=== PATIENT | male | born 1990 | race Two or more races ===

== ENCOUNTER 2018-07-13 04:22 | Emergency (ER) | payer SELFPAY ==
[2018-07-13 04:37] VITALS: BP 141/83; PULSE 81; TEMP 98; O2SAT 99
[2018-07-13] MEDS ORDERED: Amoxicillin-Clav 875-125 mg Tab PO STA (04:46)
[2018-07-13] MEDS ORDERED: Naproxen 500 MG TAB PO ONE ×2 (04:46→04:53)
--- NOTE | 2018-07-13 04:50 | ED PDOC ---
HPI: General Adult Time Seen by Provider: 07/13/18 04:40 Chief Complaint (Nursing): ENT Problem Chief Complaint (Provider): ENT Problem History Per: Patient History/Exam Limitations: no limitations Onset/Duration Of Symptoms: Days (2-3) Additional Complaint(s): 28 years old male presents to ER for evaluation of sore throat for the past 2 to 3 days. Patient reports initially he has fever, which resolved after the first day. He states he has been taking Tylenol, last dose was at 2 am today. Patient denies cough, congestion, hemoptysis, rash, abdominal pain, recent travel or sick contact. PMD: None provided Past Medical History Reviewed: Historical Data, Nursing Documentation, Vital Signs Vital Signs: Last Vital Signs Temp 98 F 07/13/18 04:36 Pulse 81 07/13/18 04:36 Resp 17 07/13/18 04:36 BP 141/83 07/13/18 04:36 Pulse Ox 99 07/13/18 04:36 - Medical History PMH: No Chronic Diseases - Surgical History Surgical History: No Surg Hx - Family History Family History: States: Unknown Family Hx - Home Medications Home Medications: Ambulatory Orders Medication Instructions Recorded Amoxicillin/Clavulanate [Augmentin 1 tab PO BID #19 tab 07/13/18 875 MG-125 MG] Naproxen [Naprosyn] 500 mg PO BID PRN #10 tab 07/13/18 - Allergies Allergies/Adverse Reactions: Allergies Allergy/AdvReac Type Severity Reaction Status Date / Time No Known Allergies Allergy Verified 07/13/18 04:37 Review of Systems ROS Statement: Except As Marked, All Systems Reviewed And Found Negative Constitutional: Positive for: Fever (resolved) ENT: Positive for: Throat Pain. Negative for: Nose Congestion Respiratory: Negative for: Cough Gastrointestinal: Negative for: Abdominal Pain Skin: Negative for: Rash Physical Exam - Reviewed Nursing Documentation Reviewed: Yes Vital Signs Reviewed: Yes - Physical Exam Appears: Positive for: Well, No Acute Distress Head Exam: Positive for: ATRAUMATIC, NORMOCEPHALIC Skin: Positive for: Normal Color, Warm, Dry Eye Exam: Positive for: Normal appearance, EOMI, PERRL ENT: Positive for: TM Is/Are (non erythematous, non bulging bilaterally), Pharyngeal Erythema (Bilateral), Tonsillar Exudate (bilateral), Tonsillar Swelling (bilateral and equal), Other (Tonsillar erythema. Able to swallow saliva. No trismus or stridor) Gastrointestinal/Abdominal: Positive for: Normal Exam, Soft. Negative for: Tenderness, Other (organomegaly) Neurological/Psych: Positive for: Awake, Alert, Oriented (x3) - ECG O2 Sat by Pulse Oximetry: 99 (RA) Pulse Ox Interpretation: Normal Medical Decision Making Medical Decision Making: Time: 445 Initial Plan: --Augmentin 1 tab PO --Decadron Inj 10 mg IM --Naproxen 500 mg PO --Throat culture Scribe Attestation: Documented by Florina De León, acting as a scribe for SAIRA Shaw. Provider Scribe Attestation: All medical record entries made by the Scribe were at my direction and personally dictated by me. I have reviewed the chart and agree that the record accurately reflects my personal performance of the history, physical exam, medic al decision making, and the department course for this patient. I have also personally directed, reviewed, and agree with the discharge instructions and disposition. Disposition - Clinical Impression Clinical Impression: Tonsillitis - Patient ED Disposition Is Patient to be Admitted: No - Disposition Referrals: [facility] [Outside] Disposition: Routine/Home Disposition Time: 04:49 Condition: IMPROVED Additional Instructions: FOLLOW UP WITH YOUR DOCTOR FOR FURTHER EVALUATION RETURN TO ED IMMEDIATELY IF SYMPTOMS WORSEN ZE [place], thank you for letting us take care of you today. Your provider was Claudia Gonzalez MD and you were treated for SORE THROAT. The emergency medical care you received today was directed at your acute symptoms. If you were prescribed any medication, please fill it and take as directed. It may take several days for your symptoms to resolve. Return to the Emergency Department if your symptoms worsen, do not improve, or if you have any other problems. Please contact your doctor or call one of the physicians/clinics you have been referred to that are listed on the Patient Visit Information form that is included in your discharge packet. Bring any paperwork you were given at discharge with you along with any medications you are taking to your follow up visit. Our treatment cannot replace ongoing medical care by a primary care provider outside of the emergency department. Thank you for allowing the [facility] team to be part of your care today. If you had an X-Ray or CT scan: A Radiologist will review the ED reading if any change in treatment is needed we will contact you. If you had a blood, urine, or wound culture: It will take several days for the results, if any change in treatment is needed we will contact you. If you had an STI test: It will take 48 hours for the results. Please call after 1 week if you have not heard back. Prescriptions: Amoxicillin/Clavulanate [Augmentin 875 MG-125 MG] 1 tab PO BID #19 tab Naproxen [Naprosyn] 500 mg PO BID PRN #10 tab PRN Reason: Pain Instructions: Sore Throat, Adult (DC) Print Language: MALAY
[2018-07-13] MEDS ORDERED: Amoxicillin-Clav 875-125 mg Tab PO ONE (04:53)
[2018-07-13 05:21] VITALS: RESP 16
== END 2018-07-13 05:15 | disposition home or self-care (01) ==
LOC: H.ER 04:22
DX: J03.90 Acute tonsillitis, unspecified (principal)
CPT/HCPCS: 87070; 96372; 99283; J1100